=== PATIENT | female | born 1995 | race Two or more races ===

== ENCOUNTER 2016-08-03 03:33 | Emergency (ER) | payer OTHER ==
--- NOTE | 2016-08-03 04:54 | EDDOCDS ---
Nurse's Notes [facility] Name: Dionne Dowling Age: 21 yrs Sex: Female : 1995 Arrival Date: 08/03/2016 Time: 03:33 Bed 17 Private MD: Diagnosis: state Presentation: 08/03 03:36 Presenting complaint: Patient states: Woke suddenly with pain in LUQ under the ribs. kmg1 Nausea. 03:36 Risk factors: the patient reports no vaginal bleeding. Suicide/Homicide risk kmg1 assessment- the patient denies having any suicidal and/or homicidal ideations and does not present with any other emotional, behavioral or mental health complaints. 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 Transition of care: patient was not received from another setting of care. 03:36 Acuity: SATISH Level 3 km 03:36 Method Of Arrival: Walkin/Carried/Asstd km 04:38 Adult Sepsis Screening: The patient does not have new or worsening altered mentation. ko2 Patient's respiratory rate is less than 22. Systolic blood pressure is greater than 100. Patient has a qSOFA score of 0- Negative Sepsis Screen. Triage Assessment: 03:45 General: Appears in no apparent distress, comfortable, Behavior is appropriate for age, kmg1 cooperative, pleasant. Pain: Location: left upper quadrant Pain currently is 2 out of 10 on a pain scale. At worst was 9 out of 10 on a pain scale. Quality of pain is described as sharp, stabbing, Pain began suddenly. Pt Declines HIV testing. GI: Reports upper abd pain, nausea. 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 Oral 1 tablet daily for (Last dose: 08/02/2016) 2. Prilosec 20 mg oral cpDR 1 cap once daily (Last dose: 08/02/2016) 3. Unisom (doxylamine) 25 mg oral tab nightly for Nausea Gravidarum (Last dose: 08/02/2016) 4. Vitamin B-6 Oral .5 tab daily (Last dose: 08/02/2016) - PMHx: none; - PSHx: Adenoidectomy; Tonsillectomy; Tubes in ears; - Social history: Smoking status: Patient states was never smoker of tobacco. No barriers to communication noted, The patient speaks fluent Welsh, Speaks appropriately for age. - Family history: Not pertinent. - : The pt / caregiver states he / she is not on anticoagulants. Home medication list is obtained from the patient. - Exposure Risk Screening:: None identified. Screenin:38 Screening information is obtained from the patient. Fall risk: No risks identified. ko2 Assistance ADL's: requires no assistance with activities of daily living. Abuse/DV Screen: The patient / caregiver reports he/she is: not in a situation that causes fear, pain or injury. Nutritional screening: No deficits noted. Advance Directives: Currently, there is no health care proxy. There is no active DNR order. There is no living will. There is no Power of Director Of Sales. home support is adequate. Assessment: 04:12 General: Appears in no apparent distress, Behavior is appropriate for age, cooperative. ko2 Pain: Location: left upper quadrant. Neurological: Level of Consciousness is awake, alert. Respiratory: Airway is patent Respiratory effort is even, unlabored. GI: Abdomen is gravid Bowel sounds present X 4 quads. Abd is soft and non tender X 4 quads. Derm: Skin is normal. Musculoskeletal: Range of motion intact in all extremities. Vital Signs: 03:45 BP 112 / 71; Pulse 77; Resp 18; Temp 96.8(O); Pulse Ox 98% on R/A; Weight 68.95 kg (R); [facility] Height 5 ft. 6 in. (167.64 cm); Pain 3/10; 03:45 Body Mass Index 24.53 (68.95 kg, 167.64 cm) [facility] Vitals: 03:45 Log In Time: August 03, 2016 at 03:33. [facility] 03:54 Heart Tones 148BPM. [facility] ED Course: 03:35 Patient visited by Vernon Escalante, Reg. pm4 03:35 Patient moved to Waiting pm4 03:42 Triage Initiated [facility] 03:54 Nubia Eastman,RN is Primary Nurse. [facility] 03:54 Patient moved to [address] [place] [address] 04:05 Noble Gunn DO is Attending Physician. [facility] 04:05 Patient visited by Noble Gunn DO. cs11 04:11 Noble Gunn DO is Attending Physician. cs11 04:39 The patient / caregiver is instructed regarding the plan of care and ED course. ko2 04:39 No IV's were initiated during this patient's visit. No procedures done that require ko2 assistance. Order Results: There are currently no results for this order. Outcome: 04:34 Discharge ordered by Provider. cs11 04:39 Discharge Assessment: patient administered narcotics - no. The following High Risk ko2 Discharge criteria are identified: None. Discharged to Labor and Delivery. Condition: stable. Discharge instructions given to patient, Instructed on discharge instructions, follow up and referral plans. Demonstrated understanding of instructions, Pt was receptive of discharge instructions/ teaching. No special radiology studies were completed. Property sent home with patient. 04:53 Discharge ordered by Provider. cs11 04:53 Patient left the ED. ko2 Signatures: Ashly Tidwell, RN RN kmg1 Noble Gunn DO DO cs11 Nubia Eastman RN RN ko2 Vernon Escalante, Reg Reg pm4 MTDD
--- NOTE | 2016-08-03 04:54 | EDDOCDS ---
Physician Documentation [facility] Name: Dionne Dowling Age: 21 yrs Sex: Female : 1995 Arrival Date: 08/03/2016 Time: 03:33 Bed 17 Private MD: Disposition: 08/03/16 04:53 Discharged to Home/Self Care. Impression: state. - Condition is Stable. - Medication Reconciliation, Local Pharmacy Hours form. - Follow up: Private Physician; When: Call to arrange an appointment; Reason: Recheck today's complaints. - Problem is an ongoing problem. - Symptoms are unchanged. - Notes: as you are greater than 20 weeks gravid, go to labor and delivery for more complete evaluation of . Historical: - Allergies: No known drug Allergies; - Home Meds: 1. Oral 1 tablet daily for (Last dose: 08/02/2016) 2. Prilosec 20 mg oral cpDR 1 cap once daily (Last dose: 08/02/2016) 3. Unisom (doxylamine) 25 mg oral tab nightly for Nausea Gravidarum (Last dose: 08/02/2016) 4. Vitamin B-6 Oral .5 tab daily (Last dose: 08/02/2016) - PMHx: none; - PSHx: Adenoidectomy; Tonsillectomy; Tubes in ears; - Social history: Smoking status: Patient states was never smoker of tobacco. No barriers to communication noted, The patient speaks fluent Sami, Speaks appropriately for age. - Family history: Not pertinent. - : The pt / caregiver states he / she is not on anticoagulants. Home medication list is obtained from the patient. - Exposure Risk Screening:: None identified. 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 6 in. (167.64 cm); Pain 3/10; 03:45 Body Mass Index 24.53 (68.95 kg, 167.64 cm) kmg1 MDM: 04:47 Urinalysis Ordered. EDMS 04:47 CBC with Diff Ordered. EDMS 04:47 MED Profile Ordered. EDMS 04:47 Liver Profile Ordered. EDMS 04:47 Urine Culture Ordered. EDMS 04:48 Ultrasound 1ST Tri Ea Additional Gest Ordered. EDMS Signatures: Dispatcher [employer] EDMS Ashly Tidwell, RN RN kmg1 Noble Gunn DO DO cs11 Nubia EastmanRN RN ko2 MTDD
--- NOTE | 2016-08-05 05:54 | EDDOCDS ---
Nurse's Notes [facility] Name: Dionne Dowling Age: 21 yrs Sex: Female : 1995 Arrival Date: 08/03/2016 Time: 03:33 Bed 17 Private MD: Diagnosis: state Presentation: 08/03 03:36 Presenting complaint: Patient states: Woke suddenly with pain in LUQ under the ribs. kmg1 Nausea. 03:36 Risk factors: the patient reports no vaginal bleeding. Suicide/Homicide risk kmg1 assessment- the patient denies having any suicidal and/or homicidal ideations and does not present with any other emotional, behavioral or mental health complaints. 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 Transition of care: patient was not received from another setting of care. 03:36 Acuity: SATISH Level 3 km 03:36 Method Of Arrival: Walkin/Carried/Asstd km 04:38 Adult Sepsis Screening: The patient does not have new or worsening altered mentation. ko2 Patient's respiratory rate is less than 22. Systolic blood pressure is greater than 100. Patient has a qSOFA score of 0- Negative Sepsis Screen. Triage Assessment: 03:45 General: Appears in no apparent distress, comfortable, Behavior is appropriate for age, kmg1 cooperative, pleasant. Pain: Location: left upper quadrant Pain currently is 2 out of 10 on a pain scale. At worst was 9 out of 10 on a pain scale. Quality of pain is described as sharp, stabbing, Pain began suddenly. Pt Declines HIV testing. GI: Reports upper abd pain, nausea. 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 Oral 1 tablet daily for (Last dose: 08/02/2016) 2. Prilosec 20 mg oral cpDR 1 cap once daily (Last dose: 08/02/2016) 3. Unisom (doxylamine) 25 mg oral tab nightly for Nausea Gravidarum (Last dose: 08/02/2016) 4. Vitamin B-6 Oral .5 tab daily (Last dose: 08/02/2016) - PMHx: none; - PSHx: Adenoidectomy; Tonsillectomy; Tubes in ears; - Social history: Smoking status: Patient states was never smoker of tobacco. No barriers to communication noted, The patient speaks fluent Luxembourgish, Speaks appropriately for age. - Family history: Not pertinent. - : The pt / caregiver states he / she is not on anticoagulants. Home medication list is obtained from the patient. - Exposure Risk Screening:: None identified. Screenin:38 Screening information is obtained from the patient. Fall risk: No risks identified. ko2 Assistance ADL's: requires no assistance with activities of daily living. Abuse/DV Screen: The patient / caregiver reports he/she is: not in a situation that causes fear, pain or injury. Nutritional screening: No deficits noted. Advance Directives: Currently, there is no health care proxy. There is no active DNR order. There is no living will. There is no Power of Ramp And Cargo Supervisor. home support is adequate. Assessment: 04:12 General: Appears in no apparent distress, Behavior is appropriate for age, cooperative. ko2 Pain: Location: left upper quadrant. Neurological: Level of Consciousness is awake, alert. Respiratory: Airway is patent Respiratory effort is even, unlabored. GI: Abdomen is gravid Bowel sounds present X 4 quads. Abd is soft and non tender X 4 quads. Derm: Skin is normal. Musculoskeletal: Range of motion intact in all extremities. Vital Signs: 03:45 BP 112 / 71; Pulse 77; Resp 18; Temp 96.8(O); Pulse Ox 98% on R/A; Weight 68.95 kg (R); [facility] Height 5 ft. 6 in. (167.64 cm); Pain 3/10; 03:45 Body Mass Index 24.53 (68.95 kg, 167.64 cm) [facility] Vitals: 03:45 Log In Time: August 03, 2016 at 03:33. [facility] 03:54 Heart Tones 148BPM. [facility] ED Course: 03:35 Patient visited by Vernon Escalante, Reg. pm4 03:35 Patient moved to Waiting pm4 03:42 Triage Initiated [facility] 03:54 Nubia Eastman,RN is Primary Nurse. [facility] 03:54 Patient moved to [address] [place] [address] 04:05 Noble Gunn DO is Attending Physician. [facility] 04:05 Patient visited by Noble Gunn DO. cs11 04:11 Noble Gunn DO is Attending Physician. cs11 04:39 The patient / caregiver is instructed regarding the plan of care and ED course. ko2 04:39 No IV's were initiated during this patient's visit. No procedures done that require ko2 assistance. 14:11 T-Sheet-- Draft Copy was scanned into [employer] and attached to record. gb Order Results: There are currently no results for this order. Outcome: 04:34 Discharge ordered by Provider. cs11 04:39 Discharge Assessment: patient administered narcotics - no. The following High Risk ko2 Discharge criteria are identified: None. Discharged to Labor and Delivery. Condition: stable. Discharge instructions given to patient, Instructed on discharge instructions, follow up and referral plans. Demonstrated understanding of instructions, Pt was receptive of discharge instructions/ teaching. No special radiology studies were completed. Property sent home with patient. 04:53 Discharge ordered by Provider. cs11 04:53 Patient left the ED. ko2 Signatures: Ashly Tidwell, RN RN kmg1 Sharmila Covington, Reg Reg gb Noble Gunn DO DO cs11 Nubia Eastman RN RN ko2 Vernon Escalante, Reg Reg pm4 Chart Complete MTDD
--- NOTE | 2016-08-05 05:54 | EDDOCDS ---
Physician Documentation [facility] Name: Dionne Dowling Age: 21 yrs Sex: Female : 1995 Arrival Date: 08/03/2016 Time: 03:33 Bed 17 Private MD: Disposition: 08/03/16 04:53 Discharged to Home/Self Care. Impression: state. - Condition is Stable. - Medication Reconciliation, Local Pharmacy Hours form. - Follow up: Private Physician; When: Call to arrange an appointment; Reason: Recheck today's complaints. - Problem is an ongoing problem. - Symptoms are unchanged. - Notes: as you are greater than 20 weeks gravid, go to labor and delivery for more complete evaluation of . Historical: - Allergies: No known drug Allergies; - Home Meds: 1. Oral 1 tablet daily for (Last dose: 08/02/2016) 2. Prilosec 20 mg oral cpDR 1 cap once daily (Last dose: 08/02/2016) 3. Unisom (doxylamine) 25 mg oral tab nightly for Nausea Gravidarum (Last dose: 08/02/2016) 4. Vitamin B-6 Oral .5 tab daily (Last dose: 08/02/2016) - PMHx: none; - PSHx: Adenoidectomy; Tonsillectomy; Tubes in ears; - Social history: Smoking status: Patient states was never smoker of tobacco. No barriers to communication noted, The patient speaks fluent Luxembourgish, Speaks appropriately for age. - Family history: Not pertinent. - : The pt / caregiver states he / she is not on anticoagulants. Home medication list is obtained from the patient. - Exposure Risk Screening:: None identified. 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 6 in. (167.64 cm); Pain 3/10; 03:45 Body Mass Index 24.53 (68.95 kg, 167.64 cm) kmg1 MDM: 04:47 Urinalysis Ordered. EDMS 04:47 CBC with Diff Ordered. EDMS 04:47 MED Profile Ordered. EDMS 04:47 Liver Profile Ordered. EDMS 04:47 Urine Culture Ordered. EDMS 04:48 Ultrasound 1ST Tri Ea Additional Gest Ordered. EDMS 14:11 T-Sheet-- Draft Copy was scanned into [employer] and attached to record. gb Signatures: Dispatcher [employer] EDMS Ashly Tidwell, RN RN kmg1 Sharmila Covington, Reg Reg gb Noble Gunn, DO DO cs11 Nubia Eastman RN RN ko2 The chart was reviewed and I authenticate all verbal orders and agree with the evaluation and treatment provided.Attachments: 14:11 T-Sheet-- Draft Copy gb Chart Complete MTDD
--- NOTE | 2016-08-05 05:54 | EDDOCDS ---
Physician Documentation [facility] Name: Dionne Dowling Age: 21 yrs Sex: Female : 1995 Arrival Date: 08/03/2016 Time: 03:33 Bed 17 Private MD: Disposition: 08/03/16 04:53 Discharged to Home/Self Care. Impression: state. - Condition is Stable. - Medication Reconciliation, Local Pharmacy Hours form. - Follow up: Private Physician; When: Call to arrange an appointment; Reason: Recheck today's complaints. - Problem is an ongoing problem. - Symptoms are unchanged. - Notes: as you are greater than 20 weeks gravid, go to labor and delivery for more complete evaluation of . Historical: - Allergies: No known drug Allergies; - Home Meds: 1. Oral 1 tablet daily for (Last dose: 08/02/2016) 2. Prilosec 20 mg oral cpDR 1 cap once daily (Last dose: 08/02/2016) 3. Unisom (doxylamine) 25 mg oral tab nightly for Nausea Gravidarum (Last dose: 08/02/2016) 4. Vitamin B-6 Oral .5 tab daily (Last dose: 08/02/2016) - PMHx: none; - PSHx: Adenoidectomy; Tonsillectomy; Tubes in ears; - Social history: Smoking status: Patient states was never smoker of tobacco. No barriers to communication noted, The patient speaks fluent Ukrainian, Speaks appropriately for age. - Family history: Not pertinent. - : The pt / caregiver states he / she is not on anticoagulants. Home medication list is obtained from the patient. - Exposure Risk Screening:: None identified. 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 6 in. (167.64 cm); Pain 3/10; 03:45 Body Mass Index 24.53 (68.95 kg, 167.64 cm) kmg1 MDM: 04:47 Urinalysis Ordered. EDMS 04:47 CBC with Diff Ordered. EDMS 04:47 MED Profile Ordered. EDMS 04:47 Liver Profile Ordered. EDMS 04:47 Urine Culture Ordered. EDMS 04:48 Ultrasound 1ST Tri Ea Additional Gest Ordered. EDMS 14:11 T-Sheet-- Draft Copy was scanned into [employer] and attached to record. gb Signatures: Dispatcher [employer] EDMS Ashly Tidwell, RN RN kmg1 Sharmila Covington, Reg Reg gb Noble Gunn, DO DO cs11 Nubia Eastman RN RN ko2 The chart was reviewed and I authenticate all verbal orders and agree with the evaluation and treatment provided.Attachments: 14:11 T-Sheet-- Draft Copy gb Chart Complete MTDD
== END 2016-08-03 04:53 | disposition home or self-care (01) ==
LOC: EDSEX 03:33 → M ED 03:33
DX: Z33.1 Pregnant state, incidental (principal); Z3A.22 22 weeks gestation of pregnancy; Z79.899 Other long term (current) drug therapy

== ENCOUNTER 2016-08-03 04:55 | Outpatient (CLI) | payer OTHER ==
[~2016-08-03] VITALS: Ht 167.6 cm; Wt 67.0 kg
[2016-08-03 05:10] VITALS: BP 116/63
[2016-08-03 07:19] VITALS: BP 122/72
--- NOTE | 2016-08-03 07:59 | REP ---
Clinical: with left flank pain. Technique: Real time coon scale and color Doppler evaluation of the bilateral kidneys and bladder. Findings: Live intrauterine identified. heart rate equals 147 beats per minute. Mild right hydronephrosis is appreciated along with mild to moderate left hydronephrosis. There is no evidence for intrarenal calculi, cystic or mass lesion. Trace left perinephric fluid collection is identified and a small 6 mm calculus at the left ureterovesical junction cannot be excluded. Bladder is normal in appearance and bilateral ureteral jets are identified. Right kidney measures 11.0 x 3.9 x 5.6 cm; RI equal 0.61. Left kidney measures 13.5 x 5.1 x 5.8 cm; RI equal 0.70. Impression: Mild to moderate bilateral hydronephrosis (left greater than right) possibly related to . However, a small 6 mm partially obstructing calculus at the left ureterovesical junction cannot be excluded. Signed by Дмитрий Esposito MD 08/03/2016 07:51 A
[2016-08-03] MEDS ORDERED: ACETAMINOPH W/CODEINE #3 TAB UD PO ONE (08:00)
== END 2016-08-03 09:07 | disposition home or self-care (01) ==
LOC: M LDO 04:55
PROVIDERS: ATTEND Obstetrics & Gynecology
DX: O99.89 Other specified diseases and conditions complicating pregnancy, childbirth and the puerperium (principal); N13.30 Unspecified hydronephrosis; Z3A.21 21 weeks gestation of pregnancy

== ENCOUNTER 2016-08-10 21:49 | Emergency (ER) | payer OTHER ==
--- NOTE | 2016-08-10 23:53 | EDDOCDS ---
Physician Documentation [facility] Name: Dionne Dowling Age: 21 yrs Sex: Female : 1995 Arrival Date: 08/10/2016 Time: 21:49 Bed Triage 2 Private MD: Other - Complete Info On Cds Disposition: 08/10/16 23:41 Discharged to Home/Self Care. Impression: related conditions, unspecified, second trimester. - Condition is Stable. - Discharge Instructions: Abdominal Pain During , [id number]. - Medication Reconciliation, Local Pharmacy Hours form. - Follow up: Roslyn Fowler, OB; When: Upon discharge from the Emergency Department; Reason: Further diagnostic work-up, Recheck today's complaints, Continuance of care. - Problem is new. - Symptoms are unchanged. - Notes: YOU ARE TO GO DIRECTLY TO LABOR AND DELIVERY UPON LEAVING THE EMERGENCY DEPARTMENT TONIGHT. Historical: - Allergies: no known allergies; - Home Meds: 1. Oral 1 tab daily for 2. Prilosec 20 mg Oral cpDR 1 cap once daily 3. Unisom (doxylamine) 25 mg oral tab nightly for Nausea Gravidarum 4. Vitamin B-6 Oral 0.5 tab daily 5. acetaminophen-codeine 300-30 mg Oral tab q6h prn (Last dose: 08/10/2016 18:00) 6. Flomax 0.4 mg Oral cp24 1 cap once daily - PMHx: none; - PSHx: Tonsillectomy; Adenoidectomy; Tubes in ears; - Social history: Smoking status: Patient states was never smoker of tobacco. No barriers to communication noted, The patient speaks fluent Polish. - Family history: Not pertinent. - : The pt / caregiver states he / she is not on anticoagulants. Home medication list is obtained from the patient. - Exposure Risk Screening:: None identified. 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 7 in. (170.18 cm) (R); Pain 8/10; 23:48 BP 112 / 69; Pulse 75; Resp 16; Temp 96.9(T); Pulse Ox 98% on R/A; Pain 4/10; rw1 21:51 Body Mass Index 24.28 (70.31 kg, 170.18 cm) gr2 MDM: 23:21 UA Ordered. EDMS 23:21 Urine Culture Ordered. EDMS 23:46 UA Reviewed. btw Signatures: Dispatcher [employer] EDMS Tam John,LEONID MOTOR COACH OPERATOR rw1 María Jimenez, RN RN jScott Barrett PA PA btw MTDD
--- NOTE | 2016-08-10 23:53 | EDDOCDS ---
Nurse's Notes [facility] Name: Dionne Dowling Age: 21 yrs Sex: Female : 1995 Arrival Date: 08/10/2016 Time: 21:49 Bed Triage 2 Private MD: Other - Complete Info On Cds Diagnosis: related conditions, unspecified, second trimester Presentation: 08/10 21:54 Presenting complaint: Patient states: seen here one week ago for possible kidney stone, jjr US and urine testing as pt is 22 weeks , told to return if pain changed, pt reports pain is more frequent and severe to left lateral abdomen and is now also present to left lower abdomen. Acute neurological deficits are not present. Mechanism of Injury: No Mechanism of Injury. Adult Sepsis Screening: The patient does not have new or worsening altered mentation. Patient's respiratory rate is less than 22. Systolic blood pressure is greater than 100. Patient has a qSOFA score of 0- Negative Sepsis Screen. Suicide/Homicide risk assessment- the patient denies having any suicidal and/or homicidal ideations and does not present with any other emotional, behavioral or mental health complaints. Status: The patient is a dependent. Transition of care: patient was not received from another setting of care. 21:54 Acuity: SATISH Level 3 jjr 21:54 Method Of Arrival: Walkin/Carried/Asstd jjr Triage Assessment: 21:58 General: Appears in no apparent distress. Pain: Location: anterior aspect of left jjr lateral abdomen and left lower quadrant. HIV screening NA for this visit Offered previously. Musculoskeletal: Reports pain in anterior aspect of left lateral abdomen and left lower quadrant. 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 Oral 1 tab daily for 2. Prilosec 20 mg Oral cpDR 1 cap once daily 3. Unisom (doxylamine) 25 mg oral tab nightly for Nausea Gravidarum 4. Vitamin B-6 Oral 0.5 tab daily 5. acetaminophen-codeine 300-30 mg Oral tab q6h prn (Last dose: 08/10/2016 18:00) 6. Flomax 0.4 mg Oral cp24 1 cap once daily - PMHx: none; - PSHx: Tonsillectomy; Adenoidectomy; Tubes in ears; - Social history: Smoking status: Patient states was never smoker of tobacco. No barriers to communication noted, The patient speaks fluent Iraqi. - Family history: Not pertinent. - : The pt / caregiver states he / she is not on anticoagulants. Home medication list is obtained from the patient. - Exposure Risk Screening:: None identified. Screenin:48 Screening information is obtained from the patient. Fall risk: No risks identified. rw1 Assistance ADL's: requires no assistance with activities of daily living. Abuse/DV Screen: The patient / caregiver reports he/she is: not in a situation that causes fear, pain or injury. Nutritional screening: No deficits noted. Advance Directives: Currently, there is no health care proxy. home support is adequate. Assessment: 23:48 Reassessment:. General: Appears distressed, uncomfortable, Behavior is appropriate for rw1 age, cooperative. Pain: Location: abdomen and left lower quadrant and anterior aspect of left lateral abdomen Pain currently is 4 out of 10 on a pain scale. Neurological: Level of Consciousness is awake, alert, obeys commands, Oriented to person, place, time. Respiratory: Airway is patent Respiratory effort is even, unlabored. Derm: Skin is pink, warm & dry. normal. Vital Signs: 21:51 BP 122 / 69; Pulse 79; Resp 18 S; Temp 96.9(O); Pulse Ox 99% on R/A; Weight 70.31 kg gr2 (R); Height 5 ft. 7 in. (170.18 cm) (R); Pain 8/10; 23:48 BP 112 / 69; Pulse 75; Resp 16; Temp 96.9(T); Pulse Ox 98% on R/A; Pain 4/10; rw1 21:51 Body Mass Index 24.28 (70.31 kg, 170.18 cm) gr2 Vitals: 21:51 Log In Time: August 10, 2016 at 21:51. gr2 ED Course: 21:50 Patient visited by Anabel Jimenez. gr2 21:50 Patient moved to Waiting gr2 21:51 Other - Complete Info On Cds is Private Physician. gr2 21:52 Patient visited by Anabel Jimenez. gr2 21:52 Patient moved to Pre RCE gr2 21:57 Triage Initiated jjr 23:22 Urine Culture Sent. rw1 23:22 UA Sent. rw1 23:24 Patient visited by Nubia Eastman RN. ko2 23:24 Scott Sullivan PA is PHCP. btw 23:24 Noble Gunn DO is Attending Physician. btw 23:24 Patient visited by Scott Sullivan PA. btw 23:24 Patient moved to Triage 2 ko2 23:40 Patient visited by Tam John LPN. rw1 23:40 MAXIMUS Mejia is Referral Physician. btw 23:48 The patient / caregiver is instructed regarding the plan of care and ED course. rw1 23:48 No IV's were initiated during this patient's visit. No procedures done that require rw1 assistance. Order Results: Lab Order: UA; SPEC'M 08/10/16 23:23 Test: APPEARANCE, URINE; Value: CLEAR; Range: CLEAR; Status: F Test: COLOR, URINE; Value: STRAW; Range: YELLOW; Status: F Test: PH,URINE; Value: 7.0; Range: 5.0-9.0; Units: UNITS; Status: F Test: SPECIFIC GRAVITY URINE AUTO; Value: 1.005; Range: 1.002-1.035; Status: F Test: PROTEIN, URINE AUTO; Value: NEGATIVE; Range: NEGATIVE; Units: mg/dL; Status: F Test: GLUCOSE, URINE (UA) AUTO; Value: NEGATIVE; Range: NEGATIVE; Units: mg/dL; Status: F Test: KETONE, URINE AUTO; Value: NEGATIVE; Range: NEGATIVE; Units: mg/dL; Status: F Test: UROBILINOGEN, URINE AUTO; Value: 0.2; Range: 0.0-2.0; Units: mg/dL; Status: F Test: BILIRUBIN, URINE AUTO; Value: NEGATIVE; Range: NEGATIVE; Status: F Test: NITRITE, URINE AUTO; Value: NEGATIVE; Range: NEGATIVE; Status: F Test: LEUKOCYTE ESTERASE, URINE AUTO; Value: 1+; Range: NEGATIVE; Abnormal: Above high normal; Status: F Test: BLOOD, URINE BLOOD; Value: NEGATIVE; Range: NEGATIVE; Status: F Test: WBC, URINE AUTO; Value: 2; Range: 0-3; Units: /HPF; Status: F Test: RBC, URINE AUTO; Value: 1; Range: 0-3; Units: /HPF; Status: F Test: BACTERIA, URINE AUTO; Value: 2+; Range: NEGATIVE; Abnormal: Above high normal; Status: F Test: SQUAMOUS EPITHELIAL CELL UR AU; Value: 2; Range: 0-6; Units: /HPF; Status: F Test: HYALINE CAST, URINE AUTO; Value: 0; Range: 0-1; Units: /LPF; Status: F Test: AMORPHOUS SEDIMENT; Value: SMALL; Range: NEGATIVE; Abnormal: Above high normal; Status: F Outcome: 23:41 Discharge ordered by Provider. btw 23:48 Discharge Assessment: Patient awake, alert and oriented x 3. No cognitive and/or rw1 functional deficits noted. Patient verbalized understanding of disposition instructions. patient administered narcotics - no. The following High Risk Discharge criteria are identified: Discharged to Labor and Delivery. Condition: stable. Discharge instructions given to patient, Instructed on discharge instructions, follow up and referral plans. Demonstrated understanding of instructions, Pt was receptive of discharge instructions/ teaching. No special radiology studies were completed. Property :Personal belongings accompany Pt. 23:51 Patient left the ED. rw1 Signatures: Tam John LPN WEAVING SUPERVISOR rw1 María Jimenez, RN RN Scott Corea PA PA btw Anabel Jimenez gr2 Nubia EastmanRN RN ko2 MTDBrenda
[2016-08-11] MEDS ORDERED: VITA50TA43 PO (00:03)
[2016-08-11] MEDS ORDERED: UNIS25TA2 PO (00:03)
[2016-08-11] MEDS ORDERED: PRENTAB9 PO (00:03)
[2016-08-11] MEDS ORDERED: OMEP10CASR PO (00:03)
[2016-08-11] MEDS ORDERED: TYLE325T5 PO (00:03)
--- NOTE | 2016-08-13 00:53 | EDDOCDS ---
Physician Documentation [facility] Name: Dionne Dowling Age: 21 yrs Sex: Female : 1995 Arrival Date: 08/10/2016 Time: 21:49 Bed Triage 2 Private MD: Other - Complete Info On Cds Disposition: 08/10/16 23:41 Discharged to Home/Self Care. Impression: related conditions, unspecified, second trimester. - Condition is Stable. - Discharge Instructions: Abdominal Pain During , [id number]. - Medication Reconciliation, Local Pharmacy Hours form. - Follow up: Roslyn Fowler, OB; When: Upon discharge from the Emergency Department; Reason: Further diagnostic work-up, Recheck today's complaints, Continuance of care. - Problem is new. - Symptoms are unchanged. - Notes: YOU ARE TO GO DIRECTLY TO LABOR AND DELIVERY UPON LEAVING THE EMERGENCY DEPARTMENT TONIGHT. Historical: - Allergies: no known allergies; - Home Meds: 1. Oral 1 tab daily for 2. Prilosec 20 mg Oral cpDR 1 cap once daily 3. Unisom (doxylamine) 25 mg oral tab nightly for Nausea Gravidarum 4. Vitamin B-6 Oral 0.5 tab daily 5. acetaminophen-codeine 300-30 mg Oral tab q6h prn (Last dose: 08/10/2016 18:00) 6. Flomax 0.4 mg Oral cp24 1 cap once daily - PMHx: none; - PSHx: Tonsillectomy; Adenoidectomy; Tubes in ears; - Social history: Smoking status: Patient states was never smoker of tobacco. No barriers to communication noted, The patient speaks fluent Tanzanian. - Family history: Not pertinent. - : The pt / caregiver states he / she is not on anticoagulants. Home medication list is obtained from the patient. - Exposure Risk Screening:: None identified. 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 7 in. (170.18 cm) (R); Pain 8/10; 23:48 BP 112 / 69; Pulse 75; Resp 16; Temp 96.9(T); Pulse Ox 98% on R/A; Pain 4/10; rw1 21:51 Body Mass Index 24.28 (70.31 kg, 170.18 cm) gr2 MDM: 23:21 UA Ordered. EDMS 23:21 Urine Culture Ordered. EDMS 23:46 UA Reviewed. btw 08/11 09:42 T-Sheet-- Draft Copy was scanned into [employer] and attached to record. gb Signatures: Dispatcher [employer] EDMS Sharmila Covington, Reg Reg gb Tam John,PRESIDENT CELEBRITY ACQUISTION PRESIDENT CELEBRITY ACQUISTION rw1 María Jimenez, SURESH RN Scott Corea PA PA btw The chart was reviewed and I authenticate all verbal orders and agree with the evaluation and treatment provided.Attachments: 09:42 T-Sheet-- Draft Copy gb Chart Complete MTDD
--- NOTE | 2016-08-13 00:53 | EDDOCDS ---
Nurse's Notes [facility] Name: Dionne Dowling Age: 21 yrs Sex: Female : 1995 Arrival Date: 08/10/2016 Time: 21:49 Bed Triage 2 Private MD: Other - Complete Info On Cds Diagnosis: related conditions, unspecified, second trimester Presentation: 08/10 21:54 Presenting complaint: Patient states: seen here one week ago for possible kidney stone, jjr US and urine testing as pt is 22 weeks , told to return if pain changed, pt reports pain is more frequent and severe to left lateral abdomen and is now also present to left lower abdomen. Acute neurological deficits are not present. Mechanism of Injury: No Mechanism of Injury. Adult Sepsis Screening: The patient does not have new or worsening altered mentation. Patient's respiratory rate is less than 22. Systolic blood pressure is greater than 100. Patient has a qSOFA score of 0- Negative Sepsis Screen. Suicide/Homicide risk assessment- the patient denies having any suicidal and/or homicidal ideations and does not present with any other emotional, behavioral or mental health complaints. Status: The patient is a dependent. Transition of care: patient was not received from another setting of care. 21:54 Acuity: SATISH Level 3 jjr 21:54 Method Of Arrival: Walkin/Carried/Asstd jjr Triage Assessment: 21:58 General: Appears in no apparent distress. Pain: Location: anterior aspect of left jjr lateral abdomen and left lower quadrant. HIV screening NA for this visit Offered previously. Musculoskeletal: Reports pain in anterior aspect of left lateral abdomen and left lower quadrant. 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 Oral 1 tab daily for 2. Prilosec 20 mg Oral cpDR 1 cap once daily 3. Unisom (doxylamine) 25 mg oral tab nightly for Nausea Gravidarum 4. Vitamin B-6 Oral 0.5 tab daily 5. acetaminophen-codeine 300-30 mg Oral tab q6h prn (Last dose: 08/10/2016 18:00) 6. Flomax 0.4 mg Oral cp24 1 cap once daily - PMHx: none; - PSHx: Tonsillectomy; Adenoidectomy; Tubes in ears; - Social history: Smoking status: Patient states was never smoker of tobacco. No barriers to communication noted, The patient speaks fluent Tunisian. - Family history: Not pertinent. - : The pt / caregiver states he / she is not on anticoagulants. Home medication list is obtained from the patient. - Exposure Risk Screening:: None identified. Screenin:48 Screening information is obtained from the patient. Fall risk: No risks identified. rw1 Assistance ADL's: requires no assistance with activities of daily living. Abuse/DV Screen: The patient / caregiver reports he/she is: not in a situation that causes fear, pain or injury. Nutritional screening: No deficits noted. Advance Directives: Currently, there is no health care proxy. home support is adequate. Assessment: 23:48 Reassessment:. General: Appears distressed, uncomfortable, Behavior is appropriate for rw1 age, cooperative. Pain: Location: abdomen and left lower quadrant and anterior aspect of left lateral abdomen Pain currently is 4 out of 10 on a pain scale. Neurological: Level of Consciousness is awake, alert, obeys commands, Oriented to person, place, time. Respiratory: Airway is patent Respiratory effort is even, unlabored. Derm: Skin is pink, warm & dry. normal. Vital Signs: 21:51 BP 122 / 69; Pulse 79; Resp 18 S; Temp 96.9(O); Pulse Ox 99% on R/A; Weight 70.31 kg gr2 (R); Height 5 ft. 7 in. (170.18 cm) (R); Pain 8/10; 23:48 BP 112 / 69; Pulse 75; Resp 16; Temp 96.9(T); Pulse Ox 98% on R/A; Pain 4/10; rw1 21:51 Body Mass Index 24.28 (70.31 kg, 170.18 cm) gr2 Vitals: 21:51 Log In Time: August 10, 2016 at 21:51. gr2 ED Course: 21:50 Patient visited by Anabel Jimenez. gr2 21:50 Patient moved to Waiting gr2 21:51 Other - Complete Info On Cds is Private Physician. gr2 21:52 Patient visited by Anabel Jimenez. gr2 21:52 Patient moved to Pre RCE gr2 21:57 Triage Initiated jjr 23:22 Urine Culture Sent. rw1 23:22 UA Sent. rw1 23:24 Patient visited by Nubia Eastman RN. ko2 23:24 Scott Sullivan PA is PHCP. btw 23:24 Noble Gunn DO is Attending Physician. btw 23:24 Patient visited by Scott Sullivan PA. btw 23:24 Patient moved to Triage 2 ko2 23:40 Patient visited by Tam Jhon LPN. rw1 23:40 Roslyn Fowler OB is Referral Physician. btw 23:48 The patient / caregiver is instructed regarding the plan of care and ED course. rw1 23:48 No IV's were initiated during this patient's visit. No procedures done that require rw1 assistance. 08/11 09:42 T-Sheet-- Draft Copy was scanned into [employer] and attached to record. gb Order Results: Lab Order: UA; SPEC'M 08/10/16 23:23 Test: APPEARANCE, URINE; Value: CLEAR; Range: CLEAR; Status: F Test: COLOR, URINE; Value: STRAW; Range: YELLOW; Status: F Test: PH,URINE; Value: 7.0; Range: 5.0-9.0; Units: UNITS; Status: F Test: SPECIFIC GRAVITY URINE AUTO; Value: 1.005; Range: 1.002-1.035; Status: F Test: PROTEIN, URINE AUTO; Value: NEGATIVE; Range: NEGATIVE; Units: mg/dL; Status: F Test: GLUCOSE, URINE (UA) AUTO; Value: NEGATIVE; Range: NEGATIVE; Units: mg/dL; Status: F Test: KETONE, URINE AUTO; Value: NEGATIVE; Range: NEGATIVE; Units: mg/dL; Status: F Test: UROBILINOGEN, URINE AUTO; Value: 0.2; Range: 0.0-2.0; Units: mg/dL; Status: F Test: BILIRUBIN, URINE AUTO; Value: NEGATIVE; Range: NEGATIVE; Status: F Test: NITRITE, URINE AUTO; Value: NEGATIVE; Range: NEGATIVE; Status: F Test: LEUKOCYTE ESTERASE, URINE AUTO; Value: 1+; Range: NEGATIVE; Abnormal: Above high normal; Status: F Test: BLOOD, URINE BLOOD; Value: NEGATIVE; Range: NEGATIVE; Status: F Test: WBC, URINE AUTO; Value: 2; Range: 0-3; Units: /HPF; Status: F Test: RBC, URINE AUTO; Value: 1; Range: 0-3; Units: /HPF; Status: F Test: BACTERIA, URINE AUTO; Value: 2+; Range: NEGATIVE; Abnormal: Above high normal; Status: F Test: SQUAMOUS EPITHELIAL CELL UR AU; Value: 2; Range: 0-6; Units: /HPF; Status: F Test: HYALINE CAST, URINE AUTO; Value: 0; Range: 0-1; Units: /LPF; Status: F Test: AMORPHOUS SEDIMENT; Value: SMALL; Range: NEGATIVE; Abnormal: Above high normal; Status: F Lab Order: Urine Culture; SPEC'M 08/10/16 23:23 Test: URINE CULTURE; Value: <EXTERNAL COMMENT eCWMed> FULL REPORT IN LAB NOTES (eCW and Medent).; Status: F Test: URINE CULTURE; Value: URINE CULTURE RESULT; Status: F Test: URINE CULTURE; Value: NO GROWTH CLINICAL SIGNIFICANCE 2 OR MORE ORGANISMS; Status: F Outcome: 08/10 23:41 Discharge ordered by Provider. btw 23:48 Discharge Assessment: Patient awake, alert and oriented x 3. No cognitive and/or rw1 functional deficits noted. Patient verbalized understanding of disposition instructions. patient administered narcotics - no. The following High Risk Discharge criteria are identified: Discharged to Labor and Delivery. Condition: stable. Discharge instructions given to patient, Instructed on discharge instructions, follow up and referral plans. Demonstrated understanding of instructions, Pt was receptive of discharge instructions/ teaching. No special radiology studies were completed. Property :Personal belongings accompany Pt. 23:51 Patient left the ED. rw1 Signatures: Sharmila Covington, Reg Reg gb Tam John,STUDENT SERVICES ADVISOR STUDENT SERVICES ADVISOR rw1 María Jimenez, RN RN Scott Corea PA PA btw Anabel Jimenez gr2 Nubia EastmanRN RN ko2 Chart Complete MTDD
--- NOTE | 2016-08-13 00:53 | EDDOCDS ---
Physician Documentation [facility] Name: Dionne Dowling Age: 21 yrs Sex: Female : 1995 Arrival Date: 08/10/2016 Time: 21:49 Bed Triage 2 Private MD: Other - Complete Info On Cds Disposition: 08/10/16 23:41 Discharged to Home/Self Care. Impression: related conditions, unspecified, second trimester. - Condition is Stable. - Discharge Instructions: Abdominal Pain During , [id number]. - Medication Reconciliation, Local Pharmacy Hours form. - Follow up: Roslyn Fowler, OB; When: Upon discharge from the Emergency Department; Reason: Further diagnostic work-up, Recheck today's complaints, Continuance of care. - Problem is new. - Symptoms are unchanged. - Notes: YOU ARE TO GO DIRECTLY TO LABOR AND DELIVERY UPON LEAVING THE EMERGENCY DEPARTMENT TONIGHT. Historical: - Allergies: no known allergies; - Home Meds: 1. Oral 1 tab daily for 2. Prilosec 20 mg Oral cpDR 1 cap once daily 3. Unisom (doxylamine) 25 mg oral tab nightly for Nausea Gravidarum 4. Vitamin B-6 Oral 0.5 tab daily 5. acetaminophen-codeine 300-30 mg Oral tab q6h prn (Last dose: 08/10/2016 18:00) 6. Flomax 0.4 mg Oral cp24 1 cap once daily - PMHx: none; - PSHx: Tonsillectomy; Adenoidectomy; Tubes in ears; - Social history: Smoking status: Patient states was never smoker of tobacco. No barriers to communication noted, The patient speaks fluent Bangladeshi. - Family history: Not pertinent. - : The pt / caregiver states he / she is not on anticoagulants. Home medication list is obtained from the patient. - Exposure Risk Screening:: None identified. PEDIATRIC UROLOGIST: 08/10 21:57 LMP 02/26/2016, Verified, EDC 12/02/2016, Gestational age from LMP: 23 weeks 6 jjr days Vital Signs: 21:51 BP 122 / 69; Pulse 79; Resp 18 S; Temp 96.9(O); Pulse Ox 99% on R/A; Weight 70.31 kg / gr2 155.01 lbs (R); Height 5 ft. 7 in. (170.18 cm) (R); Pain 8/10; 23:48 BP 112 / 69; Pulse 75; Resp 16; Temp 96.9(T); Pulse Ox 98% on R/A; Pain 4/10; rw1 21:51 Body Mass Index 24.28 (70.31 kg, 170.18 cm) gr2 MDM: 23:21 UA Ordered. EDMS 23:21 Urine Culture Ordered. EDMS 23:46 UA Reviewed. btw 08/11 09:42 T-Sheet-- Draft Copy was scanned into [employer] and attached to record. gb Signatures: Dispatcher [employer] EDMS Sharmila Covington, Reg Reg gb Tam John,HYDROCRANE OPERATOR HYDROCRANE OPERATOR rw1 María Jimenez, SURESH RN Scott Corea PA PA btw The chart was reviewed and I authenticate all verbal orders and agree with the evaluation and treatment provided.Attachments: 09:42 T-Sheet-- Draft Copy gb Chart Complete MTDD
== END 2016-08-10 23:51 | disposition home or self-care (01) ==
LOC: M ED 21:49
DX: O26.892 Other specified pregnancy related conditions, second trimester (principal); R10.32 Left lower quadrant pain; Z79.899 Other long term (current) drug therapy; Z3A.23 23 weeks gestation of pregnancy

== ENCOUNTER 2016-08-10 23:55 | Outpatient (CLI) | payer OTHER ==
[~2016-08-10] VITALS: Ht 167.6 cm; Wt 70.0 kg
[2016-08-11] MEDS ORDERED: OMEP10CASR PO (00:03)
[2016-08-11] MEDS ORDERED: VITA50TA43 PO (00:03)
[2016-08-11] MEDS ORDERED: UNIS25TA2 PO (00:03)
[2016-08-11] MEDS ORDERED: PRENTAB9 PO (00:03)
[2016-08-11] MEDS ORDERED: TYLE325T5 PO (00:03)
[2016-08-11 00:18] VITALS: BP 118/73
[2016-08-11 01:11] LABS: MEAN CORPUSCULAR HEMOGLOBIN 30.8 pg (27.0-33.0); MEAN CORPUSCULAR HGB CONC 32.1 g/dl (32.0-36.5); MEAN CORPUSCULAR VOLUME 95.9 fl (80.0-96.0); RED CELL DISTRIBUTION WIDTH 13.6 % (11.5-14.5); WHITE BLOOD COUNT 13.7 K/mm3 (4.0-10.0)
[2016-08-11 01:18] VITALS: BP 120/71
[2016-08-11 01:33] LABS: ALBUMIN/GLOBULIN RATIO 0.83 (1.00-1.93); ALKALINE PHOSPHATASE 71 U/L (45-117); ALT/SGPT 24 U/L (12-78); AMYLASE 39 U/L (25-115); ANION GAP 11 MEQ/L (8-16); AST/SGOT 14 U/L (15-37); BILIRUBIN,TOTAL 0.2 MG/DL (0.2-1.0); BLOOD UREA NITROGEN 8 MG/DL (7-18); CALCIUM LEVEL 8.2 MG/DL (8.5-10.1); CARBON DIOXIDE LEVEL 25 MEQ/L (21-32); CHLORIDE LEVEL 105 MEQ/L (98-107); GLOMERULAR FILTRATION RATE > 60.0 (>60); GLUCOSE, FASTING 78 MG/DL (70-105); POTASSIUM SERUM 4.2 MEQ/L (3.5-5.1); SODIUM LEVEL 141 MEQ/L (136-145); TOTAL PROTEIN 6.6 GM/DL (6.4-8.2)
[2016-08-11] MEDS ORDERED: MORPHINE 2 MG/ML 1ML SYRINGE IV PRN (02:15)
[2016-08-11] MEDS ORDERED: LR 1,000 ML IV SCH (02:15)
--- NOTE | 2016-08-11 04:50 | REPUSA ---
CLINICAL HISTORY: Pain. TECHNIQUE: Realtime sonographic images were obtained in multiple projections. COMMENTS: Comparison is made to the prior exam performed on 08/03/2016. The right kidney measures 9.7x5.2x4.5 cm and the left kidney measures 11.8x4.6x6.7 cm. there is mild bilateral hydronephrosis. There is no evidence of solid or cystic mass. There is no perinephric fluid . There is no renal calculus. The previously described 6 mm stone at the left UV junction is not visu alized. heart rate 144 beats per minute. Bilateral bladder ureteral jets were visualized. IMPRESSION: Left UV junction stone is not seen. Mild bilateral hydronephrosis. Thank you for your kind referral of this patient.
[2016-08-11 05:07] VITALS: BP 111/59
[2016-08-11 06:47] VITALS: BP 106/56
[2016-08-11 08:56] VITALS: BP 124/64
[2016-08-11] MEDS ORDERED: ONDANSETRON 4MG/2ML VIAL (J2405) IV PRN (09:00)
[2016-08-11 12:21] VITALS: BP 105/54
== END 2016-08-11 12:30 | disposition home or self-care (01) ==
LOC: M LDO 23:55
PROVIDERS: ATTEND Obstetrics & Gynecology
DX: O99.89 Other specified diseases and conditions complicating pregnancy, childbirth and the puerperium (principal); R11.0 Nausea; O26.832 Pregnancy related renal disease, second trimester; Z3A.22 22 weeks gestation of pregnancy
CPT/HCPCS: 36415; 76775; 80053; 81001; 82150; 83690; 85027; 87086; 96374; 96375; J2405

== ENCOUNTER 2016-09-08 14:10 | Outpatient (CLI) | payer OTHER ==
[~2016-09-08] VITALS: Ht 167.6 cm; Wt 71.0 kg
[~2016-09-08 14:10] MED LIST: OMEP10CASR PO; PRENTAB9 PO; TYLE325T5 PO; UNIS25TA2 PO; VITA50TA43 PO
[2016-09-08 14:27] VITALS: BP 130/72
[2016-09-08] MEDS ORDERED: CLAR10CA3 PO (14:44)
[2016-09-08] MEDS ORDERED: ACETAMINOPHEN TAB 650MG DOSE (2X325MG) PO ONE (15:15)
[2016-09-08] MEDS ORDERED: ACETAMINOPHEN 500 MG TAB PO ONE (15:45)
[2016-09-08 16:56] VITALS: BP 140/63
[2016-09-08 16:57] VITALS: BP 140/69
[2016-09-08 16:58] VITALS: BP 137/67
--- NOTE | 2016-09-09 10:01 | IPNPDOC ---
Text Note Date of Service The patient was seen on 09/08/16. NOTE Subjective: Dionne is a 21yo with a SIUP at approx. 26wk who presents to triage s/p fall. She states around 1300 on 09/08, she slipped on snowy surface and hit her left buttock and lower back on the ground. She did NOT hit her belly. She wasn t sure if she was feeling movement or not after the incident, which worried her. She experienced no loss of fluid/vaginal bleeding/contractions/abd pain or any other symptoms other than some soreness of her lower back. ROS Admits: taking PNV Denies: Vaginal bleeding/ loss of fluid, abdominal pain, bruising Objective: Vitals wnl Prolonged Monitoring for 5 hours (up until 6hr after fall): FHT 140 with moderate variability, + accels, neg decels, reassuring for gestational age/ Cat I tracing [place]: no CTXs or uterine irritability Physical: Gen: well developed and well-nourished in NAD. Mental: A&Ox3. Abdomen: Soft NT/ND without rebound, guarding. NO fundal tenderness Back: some tenderness of the left lower back but no bruising Extremity: no edema in LE bilaterally TAUS prior to discharge: positive FCA and FM; amaro IUP; JANETH 10cm; placenta posterior; cephalic presentation; no placental abnormalities noted Assessment: Dionne is a 21yo with a SIUP at approx. 26wk with no evidence of placental abruption. Cat I tracing for 6hr after incident (on monitor 5hr) without CTXs or uterine irritability. Vitals stable with benign physical exam. JANETH 10cm with no placental abnormalities on TAUS. course uncomplicated and PMHx noncontributory. Plan: -Tylenol 1000mg q8hr for pain -f/u for routine OB visit as scheduled 17 September -Return precautions given for bleeding, fluid loss, contractions, decreased movement, and abdominal pain. -encouraged adequate hydration -med rec reviewed MD Roslyn Wallace VS,Fishbone, I+O VS, Chemobone, I+O Vital Signs Date Time Temp Pulse Resp B/P Pulse Ox O2 Delivery O2 Flow Rate FiO2 09/08/16 16:58 77 18 137/67 09/08/16 14:27 98.0 ANKUR NO MD Sep 09, 2016 10:01
== END 2016-09-08 19:28 | disposition home or self-care (01) ==
LOC: M LDO 14:10
PROVIDERS: ATTEND Obstetrics & Gynecology
DX: O36.8120 Decreased fetal movements, second trimester, not applicable or unspecified (principal); O26.892 Other specified pregnancy related conditions, second trimester; W00.9XXA Unspecified fall due to ice and snow, initial encounter; Y92.9 Unspecified place or not applicable; Y93.9 Activity, unspecified; Y99.9 Unspecified external cause status; Z3A.26 26 weeks gestation of pregnancy

== ENCOUNTER 2016-11-03 17:46 | Outpatient (CLI) | payer OTHER ==
[~2016-11-03] VITALS: Ht 167.6 cm; Wt 80.0 kg
[~2016-11-03 17:46] MED LIST changes: +CLAR10CA3 PO
[2016-11-03 18:45] VITALS: BP 118/70
[2016-11-03 19:59] VITALS: BP 125/73
[2016-11-03 20:47] VITALS: BP 124/70
--- NOTE | 2016-11-03 21:28 | HPE ---
DATE OF ADMISSION: 11/03/2016 This is a 21-year-old 1, para 0, LMP 02/26/2016, EDC 12/14/2016 at 34 and 4 weeks of gestation with a history of contractions all day while working with no loss of fluid or vaginal bleeding. Her risk factor is that she has PVCs and she had BV treated with appropriate medication. Labs are A+, HIV negative, hep negative, RPR negative, rubella immune. Varicella equivocal, Pap normal. Gonorrhea and chlamydia negative. 1-hour glucose was 98. Quad screen was negative. CF was negative. On examination no acute distress. Symphysis fundus height is 34. Four quadrant bowel sounds are noted. Vertex FFN was performed prior to examination, the cervix was thick, closed, posterior and high presenting part at least -3 station. No vaginal loss or bleeding. Her urine is 1015, pH 5 negative, negative, negative. Her blood pressure 118/70. Respirations are 20, pulse 85, temperature 98.3. The rest the examination is unremarkable. She is normocephalic, atraumatic. Neck: Full range of motion. Pupils equal and reactive to light. Distal pulses are symmetric. No evidence of DVT, PE or superficial phlebitis. Lungs are clear bilaterally to bases. Heart: Sounds are normal. She has no PVCs at the present time. Her heart rate is within normal limits. Appropriate symphysis fundus height, nontender. Four quadrant bowel sounds are noted. No scars on her abdomen. No rashes, lesions or pruritus. No arthralgia or myalgia. No complaints of cough, wheezes, shortness of breath or dyspnea on exertion. No chest pain, not bleeding. Neuro complete. No incontinency or frequency. No nausea, vomiting, diarrhea or constipation. No diabetic issues. She has no [employer] issues. Past medical history unremarkable. Past surgical history unremarkable. Family history is noncontributory. She does not smoke, drink abuse drugs. She is . There is no domestic violence and she works in the [employer]. Our plan of management is to wait for the FFN to come back, evaluated contractions are picking up or slowing down, hydrate if necessary and discussed the possibility of a steroids in case the FFN is positive and labor may ensue. Also precautions reviewing avoiding intercourse and we are now awaiting our laboratory results.
== END 2016-11-03 20:56 | disposition home or self-care (01) ==
LOC: M LDO 17:46
PROVIDERS: ATTEND Obstetrics & Gynecology
DX: O47.03 False labor before 37 completed weeks of gestation, third trimester (principal); Z3A.34 34 weeks gestation of pregnancy

== ENCOUNTER 2016-12-08 15:53 | Inpatient (IN) | payer OTHER, SELFPAY ==
[~2016-12-08] VITALS: Ht 170.2 cm; Wt 81.0 kg
[2016-12-08] MEDS ORDERED: GAS180CA7 PO (15:59)
[2016-12-08] MEDS ORDERED: PRIL20CA9 PO (15:59)
[2016-12-08] MEDS ORDERED: MAGN30TA2 PO (15:59)
[2016-12-08 16:08] VITALS: BP 115/75
[2016-12-08] MEDS ORDERED: LACTATED RINGER'S 1000 ML IV STA (16:39)
[2016-12-08 18:44] VITALS: BP 101/60
[2016-12-08] MEDS ORDERED: FENTANYL 2MCG/ML ROPIVACAINE 0.2% IN 0.9% NACL 200ML IVBAG As Ordered ONE (21:05)
[2016-12-08 21:08] LABS: MEAN CORPUSCULAR HEMOGLOBIN 31.8 pg (27.0-33.0); MEAN CORPUSCULAR HGB CONC 33.4 g/dl (32.0-36.5); MEAN CORPUSCULAR VOLUME 95.2 fl (80.0-96.0); RED CELL DISTRIBUTION WIDTH 13.7 % (11.5-14.5); WHITE BLOOD COUNT 19.2 K/mm3 (4.0-10.0)
[2016-12-08] MEDS ORDERED: FENTANYL/ROPIVACAINE/NACL BAG 200 ML EPIDURAL SCH (22:00)
[2016-12-08] MEDS ORDERED: NALOXONE INJ 0.4 MG/1 ML VIAL (J2310) IV PRN (22:00)
[2016-12-08] MEDS ORDERED: ePHEDrine SULFATE 25 MG/5 ML(5MG/ML) SYRINGE IV PRN (22:00)
[2016-12-08] MEDS ORDERED: diphenhydrAMINE INJ 50MG/ML VIAL (J1200) IV PRN (22:00)
[2016-12-08] MEDS ORDERED: EPIDURAL/PCA KEYS XX PRN (22:00)
[2016-12-08] MEDS ORDERED: ONDANSETRON 4MG/2ML VIAL (J2405) IV PRN (22:00)
[2016-12-08] MEDS ORDERED: REFRIGERATOR IV KEYS XX PRN (22:00)
[2016-12-08] MEDS ORDERED: EPIDURAL COMMENT XX SCH (22:00)
[2016-12-08] MEDS ORDERED: LACTATED RINGER'S 1000 ML IV PRN (22:00)
[2016-12-09] MEDS ORDERED: OXYTOCIN 30 UNITS IN 0.9% NaCl 500ML IV BAG (J2590) As Ordered ONE (05:34)
[2016-12-09] MEDS ORDERED: OXYTOCIN DRIP 30 UNITS in APPROPRIATE DILUENT 1 EA IV SCH (06:26)
[2016-12-09] MEDS ORDERED: MOM 30ML SUSPENSION UDC PO PRN (06:30)
[2016-12-09] MEDS ORDERED: METHYLERGONOVINE MALEATE 0.2 MG TAB PO PRN (06:30)
[2016-12-09] MEDS ORDERED: RHOGAM 300 MCG (1500 IU) INJ (J2790) IM SCH (06:30)
[2016-12-09] MEDS ORDERED: ONDANSETRON 4MG/2ML VIAL (J2405) IV PRN (06:30)
[2016-12-09] MEDS ORDERED: METOCLOPRAMIDE INJ 10MG/2ML VIAL (J2765) IV PRN (06:30)
[2016-12-09] MEDS ORDERED: MEASLES,MUMPS,RUBELLA VACCINE INJ (MMR-II) (90707) SC SCH (06:30)
[2016-12-09] MEDS: PRENATAL VITAMIN TAB PO SCH (09:00)
[2016-12-09] MEDS: IBUPROFEN 800 MG TAB PO PRN ×2 (09:03→18:07)
[2016-12-09 10:46] VITALS: BP 106/53
[2016-12-09] MEDS: DIBUCAINE 1% OINTMENT 30GM TOP PRN (13:24)
[2016-12-09] MEDS: ACETAMINOPHEN 500 MG TAB PO PRN ×2 (14:25→21:18)
[2016-12-09 18:01] VITALS: BP 98/57
[2016-12-10] MEDS: IBUPROFEN 800 MG TAB PO PRN ×2 (05:43→16:32)
[2016-12-10 05:59] VITALS: BP 101/57
[2016-12-10] MEDS: PRENATAL VITAMIN TAB PO SCH (07:49)
[2016-12-10] MEDS: DOCUSATE SODIUM 100 MG CAP PO PRN (07:50)
[2016-12-10 18:00] VITALS: BP 114/61
[2016-12-10] MEDS ORDERED: ALBUTEROL 90 MCG/ACT 8GM HFA INHALER INH PRN (21:30)
[2016-12-10] MEDS: DIBUCAINE 1% OINTMENT 30GM TOP PRN (22:28)
[2016-12-10] MEDS: ACETAMINOPHEN 500 MG TAB PO PRN (23:04)
[2016-12-11 05:55] VITALS: BP 103/60
--- NOTE | 2016-12-11 06:18 | IPNPDOC ---
Text Note Date of Service The patient was seen on 12/11/16. NOTE PROCEDURES PERFORMED DURING STAY: spontaneous vaginal delivery ADMISSION DIAGNOSIS: 1. Active labor 2. Epidural DISCHARGE DIAGNOSES: 1. Healthy female HOSPITAL COURSE: Admitted for active labor and delivery. See delivery note. DISCHARGE MEDICATIONS: Motrin, Colace, Tylenol, Lanolin, Dibucaine, desires Nexplanon for PP control Physical exam: see note from this morning LABORATORY DATA: Please see below. ACTIVITY: as tolerated. Nothing in vagina for 6 weeks. DIET: regular DISPOSITION:stable TIME SPENT ON DISCHARGE: Greater than 15 minutes. Sessions VS,Hai, I+O VSHai I+O Vital Signs Date Time Temp Pulse Resp B/P (MAP) Pulse Ox O2 Delivery O2 Flow Rate FiO2 12/11/16 05:55 97.7 91 16 103/60 (74) I&O- Last 24 Hours up to 6 AM 12/11/16 06:00 Intake Total 960 ml Balance 960 ml LUAN,ISADORA Elizabeth MD Dec 11, 2016 06:18
[2016-12-11] MEDS: IBUPROFEN 800 MG TAB PO PRN (06:20)
--- NOTE | 2016-12-11 06:20 | IPNPDOC ---
Text Note Date of Service The patient was seen on 12/11/16. NOTE PPD2 prog note States feeling well, no complaints. No heavy VB. Pain controlled. Voiding, ambulatory. Bonding well and breast feeding well. VSSAF CTAB RRR Ut at U-2, firm Ext no CCE a/p: Doing well. d/c this morning. To bonding if baby not released. Sessions VS,Hai, I+O VSHai, I+O Vital Signs Date Time Temp Pulse Resp B/P (MAP) Pulse Ox O2 Delivery O2 Flow Rate FiO2 12/11/16 05:55 97.7 91 16 103/60 (74) I&O- Last 24 Hours up to 6 AM 12/11/16 06:00 Intake Total 960 ml Balance 960 ml SESSIONS,ISADORA Elizabeth MD Dec 11, 2016 06:20
[2016-12-11] MEDS: PRENATAL VITAMIN TAB PO SCH (07:40)
[2016-12-11] MEDS: DOCUSATE SODIUM 100 MG CAP PO PRN (07:41)
[2016-12-11] MEDS ORDERED: IBUP-1114 PO (08:04)
[2016-12-11] MEDS ORDERED: PRENTAB9 PO (08:04)
[2016-12-11] MEDS ORDERED: ACET50TA PO (08:04)
[2016-12-11] MEDS ORDERED: NUPE1OIN2 TOP (08:05)
[2016-12-11] MEDS ORDERED: COLA100C5 PO (08:05)
[2016-12-11] MEDS ORDERED: ALBU17IN2 INH (08:06)
== END 2016-12-11 10:40 | disposition home or self-care (01) | DRG 775 ==
LOC: M LDO 15:53 → M LDI 18:43 → M OBS 12-09 10:21
PROVIDERS: ADMIT Advanced Practice Midwife; ATTEND Student in an Organized Health Care Education/Training Program
PROC: 10E0XZZ Delivery of Products of Conception, External Approach (ICD-10-PCS; principal; 2016-12-09)
PROC: 10907ZC Drainage of Amniotic Fluid, Therapeutic from Products of Conception, Via Natural or Artificial Opening (ICD-10-PCS; 2016-12-09)
PROC: 0KQM0ZZ Repair Perineum Muscle, Open Approach (ICD-10-PCS; 2016-12-09)
PROC: 0HQ9XZZ Repair Perineum Skin, External Approach (ICD-10-PCS; 2016-12-09)
DX: O70.1 Second degree perineal laceration during delivery (principal); O70.0 First degree perineal laceration during delivery; Z3A.39 39 weeks gestation of pregnancy; Z37.0 Single live birth